=== PATIENT | female | born 2000 | race Caucasian/White ===

== ENCOUNTER 2020-07-01 10:45 | Emergency (ER) | payer OTHER, SELFPAY ==
[2020-07-01 11:35] VITALS: BP 141/70; PULSE 100; RESP 18; TEMP 37; O2SAT 100; BMI 23.0
--- NOTE | 2020-07-01 12:35 | ED_ITS ---
HPI - General Adult General Chief complaint: General Medical Stated complaint: FLU LIKE SYMPTOMS Time Seen by Provider: 07/01/20 12:28 Source: patient Mode of arrival: ambulatory Limitations: no limitations History of Present Illness HPI narrative: Patient reports chills, body aches, nausea and an upset stomach for the past few days worse today. Possible exposure to COVID-19. denies any fevers, sore throat, ear pain, cough, vomiting, back pain, urinary symptoms, diarrhea or constipation. Patient denies recent travel. Related Data Previous Rx's Medication Instructions Recorded acetaminophen [Tylenol] 650 mg PO Q6H PRN #14 cap 07/01/20 azithromycin [Zithromax] See Rx Instructions PO .COMPLEX #6 07/01/20 tab ondansetron HCl [Zofran] 4 mg PO Q6H PRN #14 tab 07/01/20 Allergies Allergy/AdvReac Type Severity Reaction Status Date / Time No Known Allergies Allergy Verified 07/01/20 12:17 [No Known Allergies*] seasonal Allergy Unknown Unknown Uncoded 07/01/20 12:17 Review of Systems Review of Systems: Yes all other systems are reviewed and are negative PMFSH Past Medical History Attestation statement: The following information was validated with the patient. Medical History No known health problems Social History Social History Alcohol intake: never Smoking Status: Never smoker Use of substances other than those prescribed or required for medical reasons: No Advance Directives: No Advance Directives Information Provided: No Physical Exam Vital Signs: Vital Signs: Vital Signs Temp Pulse Resp BP Pulse Ox 07/01/20 11:35 98.6 F 100 18 141/70 H 100 Body Mass Index 23.0 Const: General: cooperative, healthy appearing, comfortable, no acute distress, well developed, alert, awake and Physically active Nutritional Appearance: average body habitus and well nourished Orientation/consciousness: patient oriented x3 Limitations: no limitations HENMT: Head: Yes normal to inspection, Yes No palpable skull fracture present, Yes normocephalic and Yes atraumatic Ears: hearing grossly normal bilaterally General nose exam: Normal external nose present Face and sinus: Yes normal facial exam Mouth: moist mucous membranes Eyes: General: appearance normal, both eyes and all related structures Visual Deloen: normal visual deleon by confrontation Alignment and Position: alignment normal Periorbital: periorbital findings normal Eyelids: Yes eyelids normal Conjunctivae: conjunctivae normal Sclerae: sclerae normal Pupils: Equal, round and reactive pupils present EOM: EOMs intact bilaterally Neck: Neck: Yes normal visual inspection, Yes full ROM, Yes no lymphadenopathy, Yes no meningeal signs, Yes trachea midline and Yes supple Chest: Chest palpation & inspection: normal inspection of the chest Resp: Effort & Inspection: normal respiratory effort and able to speak in complete sentences Auscultation: clear to auscultation bilaterally, no crackles, no rales, no rhonchi and no wheezes Cardio: Rate: regular rate Rhythm: regular rhythm Heart sounds: S1 normal heart sound present and S2 normal heart sound present Peripheral pulses: Peripheral pulses 2+ throughout GI: Inspection: Yes normal to inspection Palpation (GI): Soft to palpation, nontender and No hepatosplenomegaly present Percussion: Yes normal to percussion Auscultation: normal bowel sounds : General: Yes no CVA tenderness Back/Spine/Pelvis: Back: no CVA tenderness Cervical Spine: normal cervical lordosis and cervical ROM normal Thoracic/Lumbar Spine: thoracic and lumbar spine normal to inspection and thoraco-lumbar ROM normal Skin: General skin exam: no rashes or lesions noted, elasticity normal and turgor normal Trauma: no lacerations or abrasions Wounds: no wounds Hair: normal Nails: normal Neuro: General: patient oriented x3 and no meningeal signs Cranial nerves: Yes CN's II-XII intact bilaterally and Yes Equal, round and reactive pupils present Cognition (Neuro): normal cognition Gait exam (Neuro): Normal gait present Motor exam (neuro): 5/5 motor strength present throughout Extrem: General: Yes normal to inspection, Yes full ROM, Yes capillary refill normal, Yes no clubbing, cyanosis or edema, No no pedal edema, No no calf tenderness, Yes normal gait and No edema Right upper extremity: normal to inspection, full ROM and normal capillary refill; no edema Left upper extremity: normal to inspection, full ROM and normal capillary refill; no edema Right lower extremity: normal to inspection, full ROM and normal capillary refill; no edema Left lower extremity: normal to inspection, full ROM and normal capillary refill; no edema Psych: Appearance: grossly normal and well kempt Mental Status: mental status grossly normal Speech and movement: Normal speech and movement present and Clear speech present Affect: normal affect Attitude: cooperative Thought process: Normal thought process present Thought content: Normal thought content present Insight: Good insight present (Psych) Judgement: Good judgement present (Psych) Course Course Course Narrative: Patient swab for COVID-19 at this time. Will DC home with symptomatic treatment along with instructions return if any new or worsening symptoms and to follow up with primary care provider. Patient understands agrees the plan. Discharge Plan Discharge Clinical Impression: Acute viral syndrome Patient Disposition: Home, Self-Care Instructions: Viral Syndrome (ED), COVID-19 (Coronavirus Disease 2019) (ED) Additional Instructions: Based on your symptoms and history we have sent a COVID-19. Although your RESULT IS PENDING at this time. RESULTS should return within 72 hours. At this time you will be contacted with either NEGATIVE OR POSITIVE results. -Please wait until we contact you for your results. At this time you will be okay for discharge. Please plan for self quarantine for up to 14 days. Do not expose yourself to others. You may not go to work. If testing does come back negative you may return to activities as long as you are no longer having any symptoms for at least 3 days. Please continue to follow cold instructions and wash your hands frequently. You may take Tylenol as directed on the bottle for pain or fever. Patient seen in the emergency department on 07/01/2020 and should be excused from work until negative test results AND until 72 hours without any symptoms AND at least 10 days have passed since symptoms first appeared or since last exposure to COVID-19 positive patient CDC Guidelines for home isolation: - Stay away from others - WEAR A MASK if you are sick AND STAY HOME - Cover your mouth and nose with a tissue when you cough or sneeze. Dispose of tissues in a lined trash can and wash your hands immediately with soap and water for at least 20 seconds. If soap and water are not available, clean hands with alcohol-based hand certified registered nurse anesthetist that contains at least 60% alcohol. - Clean your hands often with soap and water for at least 20 seconds - Avoid touching your eyes, nose and mouth with unwashed hands - Do not share dishes, drinking glasses, cups, eating utensils, towels, or bedding with other people in your home. After using these items, wash them thoroughly with soap and water or put in the community relations specialist. - Clean high-touch surfaces in your isolation area ( sick room and bathroom) every day; let a caregiver clean and disinfect high-touch surfaces in other areas of the home. Clean the area or item with soap and water or another detergent if it is dirty. Then, use a household disinfectant. - Limit contact with pets and animals: If you must care for a pet, wash your hands before and after interacting with them). Prescriptions: New acetaminophen [Tylenol] 325 mg capsule 650 mg PO Q6H PRN (Reason: pain) Qty: 14 RF: 0 azithromycin [Zithromax] 250 mg tablet See Rx Instructions PO .COMPLEX Qty: 6 RF: 0 ondansetron HCl [Zofran] 4 mg tablet 4 mg PO Q6H PRN (Reason: nausea and vomiting) Qty: 14 RF: 0 Referrals: ED Physician,Generic [Emergency Provider] - 2 days Stand Alone Forms: Work/School Release Print Language: Tamazight
== END 2020-07-01 12:45 | disposition home or self-care (01) ==
PROVIDERS: Physician Assistant Medical; Emergency Provider Emergency Medicine
DX: B34.9 Viral infection, unspecified (principal); Z20.828 Contact with and (suspected) exposure to other viral communicable diseases; R68.83 Chills (without fever)
CPT/HCPCS: 87635; 99283

== ENCOUNTER 2021-09-06 13:26 | Outpatient (REF) | payer OTHER, SELFPAY | END 2021-09-06 13:27 | disposition home or self-care (01) | LOC: HO.LAB 13:26 | PROVIDERS: Visit Provider Internal Medicine | DX: Z20.822 Contact with and (suspected) exposure to COVID-19 (principal) | CPT/HCPCS: C9803; U0003; U0005 ==

== ENCOUNTER 2022-04-27 15:00 | Outpatient (REF) | payer OTHER, SELFPAY ==
[2022-04-27 15:38] LABS: COVID-19 Test Positive (Negative)
== END 2022-04-27 15:01 | disposition home or self-care (01) ==
LOC: HO.LAB 15:00
PROVIDERS: Visit Provider Internal Medicine
DX: Z20.822 Contact with and (suspected) exposure to COVID-19 (principal)
CPT/HCPCS: 87635; C9803

== ENCOUNTER 2023-09-19 11:40 | Emergency (ER) | payer OTHER, SELFPAY ==
--- NOTE | 2023-09-19 11:47 | ED.URI ---
HPI - URI/Sore Throat General Chief Complaint: Upper Respiratory Symptoms Stated Complaint: Cough SOB Time Seen by Provider: 09/19/23 13:17 Related Data Previous Rx's Medication Instructions Recorded acetaminophen 325 mg capsule 650 mg (2 x 325 mg) PO Q6H PRN 07/01/20 (Tylenol) pain #14 caps azithromycin 250 mg tablet See Rx Instructions PO .COMPLEX 07/01/20 (Zithromax) uri #6 tabs omeprazole 40 mg capsule,delayed 40 mg PO DAILY #30 caps 03/24/21 release ondansetron HCl 4 mg tablet 4 mg PO Q6H PRN nausea and 03/25/21 (Zofran) vomiting #14 tabs Allergies Allergy/AdvReac Type Severity Reaction Status Date / Time No Known Allergies Allergy Verified 09/19/23 11:50 [No Known Allergies*] seasonal Allergy Unknown Unknown Uncoded 03/24/21 13:04 [facility] Past Medical History Onset Date is defined in the Problem List Problems that require an onset date and time if occurred within 24 hrs of arrival to the ED Aortic Dissection and Rupture; Neurologic impairment; Cardiopulmonary Arrest; Endotracheal Intubation; Insertion or Replacement of Mechanical Circulatory Assist Device Medical History No known health problems Social History Social History Alcohol intake: never Physical Exam Vital Signs: Vital Signs: Last Vital Signs Temp 99.1 F 09/19/23 11:48 Pulse 107 H 09/19/23 11:48 Resp 20 09/19/23 11:48 BP 188/109 H 09/19/23 11:48 Pulse Ox 98 09/19/23 11:48 O2 Del Method Room Air 09/19/23 11:48 BMI result Body Mass Index 35.4 Course Course Course Narrative: RME: 22 yo F w/no sig PMHx presenting to the ED c/o cough, congestion, SOB & chest discomfort w/cough x3-4 days. fever last week resolved. +sick contacts Viral testing, CXR ordered Full HPI, ROS and PE to be performed by primary ED provider. Medical Decision Making Lab Data Labs: Lab Results 09/19/23 Range/Units 12:06 Influenza Type A (PCR) POSITIVE A (Negative) Influenza Type B (PCR) NEGATIVE (Negative) RSV RNA Qual (PCR) NEGATIVE (Negative) SARS-CoV-2 RNA (RT-PCR) NEGATIVE (Negative) Discharge Plan Discharge Clinical Impression: Influenza Patient Disposition: Home, Self-Care Instructions: Influenza (ED) Additional Instructions: Take your medications as prescribed. If you were prescribed antibiotics today, it is important that you take your medication to their entirety, do not skip any doses, do not finish them early. Follow-up with your primary care provider this week. Return to the emergency department with new or worsening symptoms. Such as fevers, chills, chest pain, shortness of breath, nausea, vomiting, dizziness, headache, vision changes, lethargy In case of emergency call 911 Prescriptions: No Action acetaminophen [Tylenol] 325 mg capsule 650 mg PO Q6H PRN (Reason: pain) Qty: 14 0RF azithromycin [Zithromax] 250 mg tablet See Rx Instructions PO .COMPLEX Qty: 6 0RF Rx Instructions: take 500 mg today (day 1), then 250 mg for 4 days (days 2-5) omeprazole 40 mg capsule,delayed release(DR/EC) 40 mg PO DAILY Qty: 30 0RF ondansetron HCl [Zofran] 4 mg tablet 4 mg PO Q6H PRN (Reason: nausea and vomiting) Qty: 14 0RF Referrals: ED Physician,Generic [Physician] - 2 days Stand Alone Forms: Work/School Release
[2023-09-19 11:48] VITALS: BP 188/109; PULSE 107; RESP 20; TEMP 37.3; O2SAT 98; BMI 35.4
--- NOTE | 2023-09-19 13:18 | ED.GENADULT ---
HPI - General Adult General Chief complaint: Upper Respiratory Symptoms Stated complaint: Cough SOB Time Seen by Provider: 09/19/23 13:17 Source: patient Mode of arrival: ambulatory Limitations: no limitations History of Present Illness HPI narrative: This is a 22-year-old female presenting to the emergency department with fatigue, malaise, myalgias, dry cough, congestion, chest tightness for the past 3 days. + known sick contacts mom recently had similar sx. Denies nausea, vomiting, diarrhea, abdominal pain, fevers, chills, headache, vision changes, dizziness, sore throat, chest pain and shortness of breath. Related Data Previous Rx's Medication Instructions Recorded acetaminophen 325 mg capsule 650 mg (2 x 325 mg) PO Q6H PRN 07/01/20 (Tylenol) pain #14 caps azithromycin 250 mg tablet See Rx Instructions PO .COMPLEX 07/01/20 (Zithromax) uri #6 tabs omeprazole 40 mg capsule,delayed 40 mg PO DAILY #30 caps 03/24/21 release ondansetron HCl 4 mg tablet 4 mg PO Q6H PRN nausea and 03/25/21 (Zofran) vomiting #14 tabs Allergies Allergy/AdvReac Type Severity Reaction Status Date / Time No Known Allergies Allergy Verified 09/19/23 11:50 [No Known Allergies*] seasonal Allergy Unknown Unknown Uncoded 03/24/21 13:04 Review of Systems Review of Systems: Yes all other systems are reviewed and are negative PMFSH Past Medical History Attestation statement: The following information was validated with the patient. Source: old records reviewed and nursing notes reviewed Onset Date is defined in the Problem List Problems that require an onset date and time if occurred within 24 hrs of arrival to the ED Aortic Dissection and Rupture; Neurologic impairment; Cardiopulmonary Arrest; Endotracheal Intubation; Insertion or Replacement of Mechanical Circulatory Assist Device Medical History No known health problems Social History Social History Alcohol intake: never Physical Exam ED Vital Signs: Vital Signs - 24 hr 09/19/23 11:48 Temperature 99.1 F Pulse Rate 107 H Respiratory Rate 20 Blood Pressure 188/109 H Pulse Oximetry 98 Oxygen Delivery Method Room Air BMI result Body Mass Index 35.4 vss Appearance: Alert.? Oriented X3.? No acute distress.? Head: Normocephalic, atraumatic, no step-offs or deformities Eyes: Pupils equal, round and reactive to light.? Neck: Normal inspection.? Neck supple.? CVS: Normal heart rate and rhythm.? Pulses normal.? Respiratory: No respiratory distress.? Breath sounds normal.? Abdomen: Soft and nontender.? Skin: Skin warm and dry.? Normal skin color.? Normal skin turgor.? Extremities: No lower extremity edema.? No calf ttp. 5/5 strength to bilateral upper and lower extremities Neuro: Oriented X 3.? No motor deficit.? No sensory deficit. CN 2-12 intact Course Reevaluation(s) Reevaluation #1: Patient is noted to be positive for influenza this is likely causing patient's symptoms. Supportive measures discussed with patient. Greater than 48 hours of symptoms no indication for Tamiflu. Educated patient on diagnosis and treatment plan, answered all question, patient verbalizes understanding. At this time patient will be discharged home, advised to return with new or worsening symptoms. Educated on worrisome signs and symptoms and when to return. At this time I feel comfortable discharge home. Time: 13:20 Medical Decision Making Medical Decision Making [facility] Narrative: ??22-year-old female presents with viral symptoms for the past 3 days. ??Physical examination benign ?This is likely viral flu versus COVID versus RSV versus bronchitis.? Unlikely pulmonary embolism, pneumonia, ACS, retropharyngeal abscess, peritonsillar abscess, epiglottitis, intracranial hemorrhage, stroke, posterior stroke, meningitis or encephalitis.? No signs of acute respiratory distress ?Plan viral testing Differential Diagnosis Differential Diagnoses: The differential diagnosis associated with the presentation includes ?This is likely viral flu versus COVID versus RSV versus bronchitis.? Unlikely pulmonary embolism, pneumonia, ACS, retropharyngeal abscess, peritonsillar abscess, epiglottitis, intracranial hemorrhage, stroke, posterior stroke, meningitis or encephalitis.? No signs of acute respiratory distress Admission/Observation Consideration of admission/observation: Escalation of care including admission/observation [facility] Lab Data [facility] Lab Attestation statement: I reviewed the patient's lab results. Labs: Lab Results 09/19/23 Range/Units 12:06 Influenza Type A (PCR) POSITIVE A (Negative) Influenza Type B (PCR) NEGATIVE (Negative) RSV RNA Qual (PCR) NEGATIVE (Negative) SARS-CoV-2 RNA (RT-PCR) NEGATIVE (Negative) Independent Interpretation I performed an independent interpretation of an: Plain X-Ray (unremarkable ) Radiology Impression Discussion of test interpretation with radiology: I have reviewed the radiologist's reading. Tests considered The following testing was considered but not selected: Eating, drinking, no acute findings on exam no indication for labs or imaging. Critical Care Time Critical Care Time Critical Care Time: No Discharge Plan Discharge Clinical Impression: Influenza Patient Disposition: Home, Self-Care Instructions: Influenza (ED) Additional Instructions: Take your medications as prescribed. If you were prescribed antibiotics today, it is important that you take your medication to their entirety, do not skip any doses, do not finish them early. Follow-up with your primary care provider this week. Return to the emergency department with new or worsening symptoms. Such as fevers, chills, chest pain, shortness of breath, nausea, vomiting, dizziness, headache, vision changes, lethargy In case of emergency call 911 Prescriptions: No Action acetaminophen [Tylenol] 325 mg capsule 650 mg PO Q6H PRN (Reason: pain) Qty: 14 0RF azithromycin [Zithromax] 250 mg tablet See Rx Instructions PO .COMPLEX Qty: 6 0RF Rx Instructions: take 500 mg today (day 1), then 250 mg for 4 days (days 2-5) omeprazole 40 mg capsule,delayed release(DR/EC) 40 mg PO DAILY Qty: 30 0RF ondansetron HCl [Zofran] 4 mg tablet 4 mg PO Q6H PRN (Reason: nausea and vomiting) Qty: 14 0RF Referrals: ED Physician,Generic [Physician] - 2 days Stand Alone Forms: Work/School Release
== END 2023-09-19 14:28 | disposition home or self-care (01) ==
PROVIDERS: Emergency Provider Emergency Medicine
DX: J10.1 Influenza due to other identified influenza virus with other respiratory manifestations (principal); R05.9 Cough, unspecified; R53.83 Other fatigue; R07.89 Other chest pain
CPT/HCPCS: 0241U; 71046; 99282; 99283

== ENCOUNTER 2024-08-08 09:23 | Outpatient (AMB) | payer OTHER, SELFPAY ==
[2024-08-08 09:30] VITALS: BMI 35.2
--- NOTE | 2024-08-08 09:30 | MHC.OFFVIS ---
Vital Signs 08/08/24 09:30 Height 5 ft 3 in Weight 199 lb BMI 35.2 Intake Visit Reasons: GOLD [employer]ER-Right hand, RF numbness & tingling Intake Note: Lucille is a 23 year old right hand dominant female who presents today as a self-referred new patient with complaints of right hand numbness and tingling , worse on the ulnar aspect of the right wrist and right ring finger. 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 Has tried hand braces. Denies injuries or surgeries to the right hand. Patient has not has EMG done. Allergies No Known Allergies [No Known Allergies*] Allergy (Verified 08/08/24 09:34) seasonal Allergy (Unknown, Uncoded 08/08/24 09:34) Unknown HPI Comments Details: Patient seen today for hand numbness. Constant numbness on right 4th digit. Numbness on right 5th digit that wakes her up in middle of the night. Denies neck pain associated. She does have ulnar wrist pain. Denies elbow pain. Has tried OTC wrist brace which has been helping so far. [facility], [facility] Medical History No known health problems Social History (Updated 08/08/24 @ 09:39 by ROCIO Vazquez) Alcohol intake: never Current occupational status: employed Current occupation: parts sales representative, rt handed Review of Systems Const All systems reviewed & are unremarkable except as noted in HPI and below Physical Exam Vital Signs: BMI result Body Mass Index 35.2 Constitutional: Patient appears to be in no acute distress, well nourished and well developed. MSK: Inspection reveals appropriate head and neck positioning. No pain with palpation over the neck musculature. Cervical ROM was full. Spurling's sign negative. Bilateral shoulder ROM WNL. No ligamentous laxity or crepitance. No increased effusion. Hawkin's test is negative. No joint effusion noted. No deformity noted. No intrinsic hand weakness noted. No atrophy noted. Shira test negative. Carpal compression test positive right. Tinel sign negative. Strength is 5/5 in all muscle groups tested. No increased tone noted. Neurological: Neurologic examination of the upper and lower extremities was nonfocal with intact sensation, muscle stretch reflexes and without focal motor deficits . Espinosa's negative bilaterally. Gait is non-antalgic without loss of balance. Assessment & Plan Assessment & Plan (1) Numbness of right hand: Code(s): R20.0 - Anesthesia of skin Category: Medical Plan CTS vs ulnar neuropathy? We will schedule for EMG. Continue wrist brace for now. Assessment and plan discussed with patient, and patient was agreeable. All questions were answered thoroughly. Eloise Cano MD, [place] Board Certified, [place] [employer] and [employer] (ABPMR) Board Certified, [place] [employer] (ABEM) Orders: Orders NE nerve conduction velocity Today R20.0 - Anesthesia of skin NE electromyogram (EMG) Today R20.0 - Anesthesia of skin Coding Level of Care Code New Pt Level 3 (04185) Diagnoses Numbness of right hand R20.0
== END 2024-08-08 09:46 | disposition home or self-care (01) ==
PROVIDERS: Visit Provider Physical Medicine & Rehabilitation
DX: R20.0 Anesthesia of skin (principal)
CPT/HCPCS: 99203

== ENCOUNTER → 2024-08-08 09:23 | Outpatient (BNVA) | payer OTHER, SELFPAY | PROVIDERS: Visit Provider Physical Medicine & Rehabilitation | DX: R20.0 Anesthesia of skin (principal) | CPT/HCPCS: 99202 ==